=== PATIENT | male | born 1990 | race African-American/Black ===

== ENCOUNTER 2022-08-06 03:21 | Emergency (ER) | payer MEDICAID ==
[~2022-08-06] VITALS: Ht 177.8 cm; Wt 83.0 kg
[2022-08-06 03:26] VITALS: O2SAT 100
[2022-08-06] MEDS ORDERED: KETOROLAC 60MG/2ML VIAL IM STA (04:24)
[2022-08-06 04:47] VITALS: BP 127/83
[2022-08-06] MEDS ORDERED: IBUP-2029 PO (06:25)
[2022-08-06 06:47] VITALS: PULSE 80; RESP 16; TEMP 98.4
== END 2022-08-06 06:50 | disposition home or self-care (01) ==
LOC: ER 03:39
DX: S90.31XA Contusion of right foot, initial encounter (principal); M79.671 Pain in right foot; W18.39XA Other fall on same level, initial encounter; Y93.89 Activity, other specified; Y92.89 Other specified places as the place of occurrence of the external cause; Y99.8 Other external cause status
CPT/HCPCS: 73610; 73630; 96372; 99284; J1885; Z7610

== ENCOUNTER 2023-08-22 02:10 | Emergency (ER) | payer MEDICAID, OTHER ==
[~2023-08-22] VITALS: Ht 180.3 cm; Wt 72.0 kg
[~2023-08-22 02:10] MED LIST: IBUP-2029 PO
[2023-08-22 02:13] VITALS: O2SAT 100
[2023-08-22 02:40] VITALS: TEMP 97.7
[2023-08-22] MEDS: LEVETIRACETAM 1000MG PREMIX 100 ML IV ONE (03:21)
[2023-08-22] MEDS: SODIUM CHLORIDE 0.9% 1,000 ML IV ONE (03:21)
[2023-08-22] MEDS: KETOROLAC 30MG/ML VIAL IV STA (03:21)
[2023-08-22 03:28] LABS: CHLORIDE 98 mEq/L (98-107); SODIUM 136 mEq/L (136-145)
[2023-08-22 03:29] LABS: CARBON DIOXIDE 22 mEq/L (21-32)
[2023-08-22 03:30] LABS: CALCIUM 9.6 mg/dL (8.7-10.4)
[2023-08-22 03:32] LABS: BASOPHILS % 0.3 % (0.0-2.0); EOSINOPHILS % 0.7 % (0.0-5.0); HEMATOCRIT. 37.5 % (42.0-52.0); HEMOGLOBIN. 12.6 g/dL (14.0-18.0); LYMPHOCYTES % 37.2 % (20.0-50.0); MEAN CORPUSCULAR HEMOGLOBIN 31.3 pg (28.0-32.0); MEAN CORPUSCULAR HGB CONC 33.5 g/dL (31.0-37.0); MEAN CORPUSCULAR VOLUME 93.4 fL (80.0-94.0); MEAN PLATELET VOLUME 9.3 fl (7.4-10.4); NEUTROPHILS % 54.8 % (40.0-76.0); PLATELET 110 x1000/uL (130-400); RED BLOOD CELL COUNT 4.02 mill/uL (4.7-6.1); RED CELL DISTRIBUTION WIDTH 16.3 % (11.6-14.6); WHITE BLOOD COUNT 5.8 x1000/uL (4.5-11.0)
[2023-08-22 03:34] LABS: GLUCOSE 154 mg/dL (70-105)
[2023-08-22 03:35] LABS: UREA NITROGEN BLOOD 7 mg/dL (9-23)
[2023-08-22 03:46] LABS: POTASSIUM 2.8 mEq/L (3.5-5.1)
[2023-08-22] MEDS: POTASSIUM CHLORIDE 20MEQ TABLET SR PO ONE (04:07)
[2023-08-22] MEDS: KCL 20MEQ/100ML PREMIX 100 ML IV ONE (04:23)
[2023-08-22] MEDS ORDERED: KEPP500 MT (05:15)
[2023-08-22] MEDS ORDERED: POTA10TA20 MT (05:16)
[2023-08-22 06:26] VITALS: BP 143/94; PULSE 77; RESP 15
== END 2023-08-22 06:40 | disposition home or self-care (01) ==
LOC: ER 02:10
DX: R56.9 Unspecified convulsions (principal); E87.6 Hypokalemia; F41.9 Anxiety disorder, unspecified; F17.210 Nicotine dependence, cigarettes, uncomplicated
CPT/HCPCS: 80048; 85025; 36415; 96367; 96365; 96375; 99284; J1953; J1885; J3480; J7030; Z7610 ×4